=== PATIENT | female | born 1975 | race Caucasian/White ===

== ENCOUNTER 2018-02-27 16:18 | Emergency (ER) | payer MEDICAID ==
[~2018-02-27] VITALS: Ht 170.2 cm; Wt 81.6 kg
[2018-02-27 16:39] VITALS: BP 128/74
[2018-02-27] MEDS ORDERED: ULTRAM50 MG ORAL (16:49)
--- NOTE | 2018-02-27 16:50 | Emergency Room Report ---
History of Present Illness General Chief Complaint: Toothache Source: Patient Present Illness HPI 42-year-old female patient presents to ER complaining of toothache for the past 3 days. Patient reports that she was seen by her dentist earlier today and states she was discharged home after that with out any medication. Reports that she called her dentist later still complaining of pain and he called in a prescription for antibiotics. Patient reports she has not filled the prescription for antibiotics. Patient reports that she has been taking Advil, Tylenol, Excedrin for pain symptoms. Reports pain only resolves when she holds cold water in her mouth. states she was told by her dentist at the pain could be a result of her grinding her teeth. Denies fever, chest pain, shortness breath, vomiting. reports pain radiating to face. reports she had surgery to replace her teeth with veneers 2 months ago. Allergies: Coded Allergies: No Known Allergies (Unverified , 02/27/18) Patient History Past Medical History: see triage record Last Menstrual Period: 02/25/18 Reviewed Nursing Documentation: PMH: Agreed; PSxH: Agreed Nursing Documentation-PMH Past Medical History: No Stated History Review of Systems All Other Systems: negative except mentioned in HPI Physical Exam Vital Signs Date Time Temp Pulse Resp B/P (MAP) Pulse Ox O2 Delivery O2 Flow Rate FiO2 02/27/18 16:21 97.9 104 18 130/88 96 Room Air 97.9 Sp02 EP Interpretation: reviewed, normal General Appearance: well appearing, no apparent distress, alert, GCS 15, non- toxic Head: normocephalic, atraumatic Eyes: bilateral eye normal inspection, bilateral eye PERRL ENT: hearing grossly normal, normal pharynx, no angioedema, normal voice, TMs + canals normal, uvula midline, moist mucus membranes, other - no gum swelling, no erythema or edema, no abscess, no fluctuance or induration, no TTP of teeth Neck: full range of motion Respiratory: lungs clear, normal breath sounds, no rhonchi, no respiratory distress, no accessory muscle use, no wheezing, speaking full sentences Cardiovascular #1: regular rate, rhythm, no edema Genitourinary: no CVA tenderness Musculoskeletal: back normal, digits/nails normal, gait/station normal, normal range of motion, non-tender Neurologic: alert, oriented x3, responsive, motor strength/tone normal, sensory intact Psychiatric: mood/affect normal Skin: no rash Lymphatic: no adenopathy Medical Decision Making PA Attestation Dr. Sweet is my supervising Physician whom patient management has been discussed with. Diagnostic Impression: Primary Impression: Toothache ER Course Pt. presents to the ED c/o dental pain. Ddx considered but are not limited to cellulitis, abscess, dental caries, gingivitis, otitis media, sinusitis, strep throat, trigeminal neuralgia, temporal arteritis. No TTP over moravian region, no pulsating arteries, no fever, pain resolved with cold water mouth wash, low suspicion for temporal arteritis. Does not require imaging or labs at this time. Vital signs: are WNL, pt. is afebrile ED INTERVENTIONS: Pain medication provided in the ER. Physical exam benign. Nontoxic appearing, speaking full sentences, no active draining, mild edema, no trismus or vision changes. No signs of abscess, no fluctuance, erythema or edema. follow-up with PCP and request referral to maxillofacial specialist. Followup with dentist. Begin taking abx prescription to cover for possible infection provided by dentist. discuss pain control at that time. F/u with PCP and dentist for further treatment. DISCHARGE: -Rx provided for Ultram, CURES reviewed At this time pt. is stable for d/c to home. Patient is resting comfortably, in no acute distress, nontoxic appearing, talking and smiling without difficulty. Will provide printed patient care instructions and any necessary prescriptions. Care plan and follow up instructions have been discussed with the patient prior to discharge. Patient instructed to follow-up with primary care provider in 2 - 3 days. Followup with dentist. Patient questions asked and answered. Patient reports understanding and agreement to treatment plan. ER precautions given. Patient instructed to return to ER immediately for any new or worsening of symptoms including but not limited to fever, worsening of pain symptoms, worsening of erythema, red streaking. - Please note that this Emergency Department Report was dictated using [email or web address] operator technology software, occasionally this can lead to erroneous entry secondary to interpretation by the dictation equipment. Last Vital Signs Date Time Temp Pulse Resp B/P (MAP) Pulse Ox O2 Delivery O2 Flow Rate FiO2 02/27/18 16:39 98.0 76 20 128/74 97 Room Air 98.0 Disposition: HOME, SELF-CARE Condition: Stable Scripts Tramadol Hcl (ULTRAM*) 50 Mg Tablet 50 MG ORAL Q6H, #10 TAB 0 Refills Prov: Wilber Osuna 02/27/18 Patient Instructions: Dental Pain Additional Instructions: Followup with primary care provider in 1-2 days and request referral to maxillofacial specialist. Followup with dentist, take abx as instructed. Take medications as directed. Patient questions asked and answered. May cause drowsiness, do not take prior to drinking, driving, using heavy machinery. ER precautions given, patient instructed to return to ER immediately for any new or worsening of symptoms. Wilber Osuna Feb 27, 2018 16:50
[2018-02-27] MEDS ORDERED: Ketorolac 30mg Inj ONE (16:52)
[2018-02-27] MEDS ORDERED: Ketorolac 30mg Inj IM ONE (17:00)
[2018-02-27 17:15] VITALS: BP 132/68
== END 2018-02-27 17:15 | disposition home or self-care (01) ==
LOC: EDBD 16:35 → EMR 16:35
DX: K08.89 Other specified disorders of teeth and supporting structures (principal)
CPT/HCPCS: 96372; 99283; J1885

== ENCOUNTER 2019-02-23 15:22 | Emergency (ER) | payer MEDICAID ==
[~2019-02-23] VITALS: Ht 167.6 cm; Wt 72.6 kg
[~2019-02-23 15:22] MED LIST: ULTRAM50 MG ORAL
[2019-02-23] MEDS ORDERED: NKM (15:39)
--- NOTE | 2019-02-23 15:41 | NUR ---
ED Nurse Note: Patient presents to ER due to fall injury yesterday @ 1700 in [employer]. Patient was walking in the store, slipped and fell backward. Patient states 'there was detergent on the floor'. Reports no head injury. Swelling and bruise over the left elbow area noted. Patient reports decreased swelling after use of ice pack. Patient c/o LUE, right shoulder pain and hip pain. Patient awake, alert, oriented x 4. Regular, unlabored breathing noted. Ambulating to the room with steady gait.
[2019-02-23 16:14] VITALS: BP 119/84
[2019-02-23] MEDS ORDERED: traMADol 50mg tab ORAL ONE (16:15)
--- NOTE | 2019-02-23 17:43 | Emergency Room Report ---
History of Present Illness General Chief Complaint: Multiple Trauma/Fall Source: Patient (Alanna Olea) Present Illness HPI 43-year-old female presents to the emergency department complaining of 8 out of 10 severity pain to the right elbow, right shoulder, right hip and left medial elbow. She reports bruise to the left medial elbow as well as the right lateral aspect of the right garcia. Patient reports mechanical slip and fall at a store yesterday. Patient denies hitting her head or having loss of consciousness. She reports dull tight STOKES . Patient does report some generalized pain and stiffness in the musculature of the back. She denies midline neck, back or sacral pain. Patient states that she was carrying things and was unable to break her fall with her hands. Patient denies dizziness, nausea, vomiting. Patient denies taking blood thinning medications. Denies numbness tingling or loss of sensation or gross motor movements of the extremities, incontinence of bowel or bladder. Denies CP, Palpitations, AMS, Changes in Vision, weakness or a sudden severe headache. (Alanna Olea) Allergies: Coded Allergies: No Known Allergies (Unverified , 02/27/18) Patient History Past Medical History: see triage record Past Surgical History: none Pertinent Family History: none Last Menstrual Period: 2 weeks ago Now: No Immunizations: UTD Reviewed Nursing Documentation: PMH: Agreed; PSxH: Agreed (Alanna Olea) Nursing Documentation-PMH Past Medical History: No Stated History (Alanna Olea) Review of Systems All Other Systems: negative except mentioned in HPI (Alanna Olea) Physical Exam Vital Signs Date Time Temp Pulse Resp B/P (MAP) Pulse Ox O2 Delivery O2 Flow Rate FiO2 02/23/19 15:30 98.2 100 18 119/84 (96) 96 Room Air Sp02 EP Interpretation: reviewed, normal General Appearance: no apparent distress, alert, GCS 15, non-toxic Head: normocephalic, atraumatic Eyes: bilateral eye normal inspection, bilateral eye PERRL ENT: hearing grossly normal, normal voice Neck: full range of motion, no bony tend Respiratory: lungs clear, normal breath sounds, speaking full sentences Cardiovascular #1: regular rate, rhythm, normal capillary refill Gastrointestinal: non tender, soft Musculoskeletal: back normal, gait/station normal - ambulatory without assistance, normal range of motion, tender - TTP lateral right hip, TTP lateral right elbow, TTP lateral and posterior right shoulder, TTP , medial Left elbow. FROM of all joints, no obivous deformities, no clicking or increased laxity. Bruise noted to medial left elbow and lateral right garcia. no open wounds or bleeding. TTP to the paraspinal musculature of the upper backl and right side of the neck , no midline spinous process tenderness, no step off of the C-Spine , T-Spine or L-Spine, no Sacral TTP. Neurologic: alert, oriented x3, responsive, motor strength/tone normal, sensory intact, speech normal, grossly normal Psychiatric: judgement/insight normal Skin: Ecchymosis/Bruising - Bruise noted to medial left elbow and lateral right garcia. no open wounds or bleeding. (Alanna Olea) Medical Decision Making PA Attestation Dr. Falk Is my supervising Physician whom patient management has been discussed with. (Alanna Olea) Diagnostic Impression: Primary Impression: Contusion, multiple sites Additional Impressions: Muscle strain Generalized body aches Head ache Qualified Codes: R51 - Headache ER Course 43-year-old female presents to the emergency department complaining of 8 out of 10 severity pain to the right elbow, right shoulder, right hip and left medial elbow. She reports bruise to the left medial elbow as well as the right lateral aspect of the right garcia. Patient reports mechanical slip and fall at a store yesterday. Patient denies hitting her head or having loss of consciousness. She reports dull tight STOKES . Patient does report some generalized pain and stiffness in the musculature of the back. She denies midline neck, back or sacral pain. Patient states that she was carrying things and was unable to break her fall with her hands. Patient denies dizziness, nausea, vomiting. Patient denies taking blood thinning medications. Denies numbness tingling or loss of sensation or gross motor movements of the extremities, incontinence of bowel or bladder. Denies CP, Palpitations, AMS, Changes in Vision, weakness or a sudden severe headache. Ddx considered but are not limited to Fracture, dislocation, contusion, Sprain/ Strain/Spasm. Vital signs: are WNL, pt. is afebrile H&PE are most consistent with musculoskeletal injury will perform imaging to r/ o fractures/dislocations. ORDERS: - Urine Hcg: Negative - X-ray's: Right elbow 3 views, Left elbow 3 views, Right shoulder 3 views, and Right hip 3 views - negative for fx, Dislocation, or significant soft tissue injury, per preliminary read in ED, and signed by GIO Olea, my supervising physician has reviewed, and agrees with my interpretation. ED INTERVENTIONS: --Tramadol PO -- Right arm Sling applied by sound engineering technician. Pt. remains neurovascularly intact. DISCHARGE: At this time pt. is stable for d/c to home. Will provide printed patient care instructions, and any necessary prescriptions. Care plan and follow up instructions have been discussed with the patient prior to discharge. (Alanna Olea) Other X-Ray Diagnostic Results Other X-Ray Diagnostic Results #1: X-Ray ordered: Left Elbow # of Views/Limited Vs Complete: 3 View Indication: Pain EP Interpretation: Yes PA Xray: Interpretation reviewed, by supervising MD Interpretation: no dislocation, no soft tissue swelling, no fractures Impression: No acute disease Electronically Signed by: Alanna Olea PA-C Other X-Ray Diagnostic Results #2: X-Ray ordered: Right elbow # of Views/Limited Vs Complete: 3 View Indication: Pain EP Interpretation: Yes PA Xray: Interpretation reviewed, by supervising MD, and agrees with findings. Interpretation: no dislocation, no soft tissue swelling, no fractures Impression: No acute disease Electronically Signed by: Alanna Olea PA-C Other X-Ray Diagnostic Results #3: X-Ray ordered: Right HIP # of Views/Limited Vs Complete: 3 View Indication: Pain EP Interpretation: Yes PA Xray: Interpretation reviewed, by supervising MD, and agrees with findings. Interpretation: no dislocation, no soft tissue swelling, no fractures Impression: No acute disease Electronically Signed by: Alanna Olea PA-C Other X-Ray Diagnostic Results #4: X-Ray ordered: RIght SHoulder # of Views/Limited Vs Complete: 3 View Indication: Pain EP Interpretation: Yes PA Xray: Interpretation reviewed, by supervising MD, and agrees with findings. Interpretation: no dislocation, no soft tissue swelling, no fractures Impression: No acute disease Electronically Signed by: Alanna Olea PA-C (Alanna Olea) Other X-Ray Diagnostic Results #1: Electronically Signed by: Anjelica Lofton documentation of Xray reviewed by me and is accurate, Ion Falk MD Other X-Ray Diagnostic Results #2: Electronically Signed by: P A documentation of Xray reviewed by me and is accurate, Ion Falk MD Other X-Ray Diagnostic Results #3: Electronically Signed by: P A documentation of Xray reviewed by me and is accurate, Ion Falk MD Other X-Ray Diagnostic Results #4: Electronically Signed by: P A documentation of Xray reviewed by me and is accurate, Ion Falk MD (Ion Falk MD) Last Vital Signs Date Time Temp Pulse Resp B/P (MAP) Pulse Ox O2 Delivery O2 Flow Rate FiO2 02/23/19 17:27 98.2 02/23/19 16:14 100 18 Room Air 02/23/19 16:14 119/84 96 Status: improved (Alanna Olea) Disposition: HOME, SELF-CARE Condition: Stable Scripts Ibuprofen* (MOTRIN*) 600 Mg Tablet 600 MG ORAL THREE TIMES A DAY, #30 TAB 0 Refills Prov: Alanna Olea 02/23/19 Methocarbamol* (ROBAXIN-750*) 750 Mg Tablet 750 MG PO QID, #28 TAB 0 Refills Prov: Alanna Olea 02/23/19 Departure Forms: Return to Work Return to Work Date: Feb 26, 2019 Work Restrictions: No Heavy Lifting Other Restrictions: May return Sooner if Symptoms have resolved. Return to Full Activity: Mar 01, 2019 Patient Instructions: Contusion, [id number], Muscle Strain, [id number] Additional Instructions: Take medications as directed. Follow up with a Primary Care Provider in 3-5 days, even if your symptoms have resolved. --Please review list of primary care clinics, if you do not already have a primary care provider Return sooner to ED if new symptoms occur, or current symptoms become worse. Do not drink alcohol, drive, or operate heavy machinery while taking Robaxin ( Muscle Relaxers) as this may cause drowsiness. - Please note that this Emergency Department Report was dictated using [email or web address] or beauty salon manager technology software, occasionally this can lead to erroneous entry secondary to interpretation by the dictation equipment. Alanna Olea Feb 23, 2019 17:43 Ion Falk MD Feb 24, 2019 02:37
[2019-02-23] MEDS ORDERED: IBUPROFEN600 MG ORAL (17:44)
[2019-02-23] MEDS ORDERED: ROBAXIN-750750 MG PO (17:44)
[2019-02-23 17:46] VITALS: BP 119/84
--- NOTE | 2019-02-23 17:48 | NUR ---
ER DISCHARGE NOTE:arm sling placed on right arm Patient is cleared to be discharged per ERMD, pt is aox4, on room air, with stable vital signs. pt was given dc and prescription instructions, pt was able to verbalize understanding, pt is able to ambulate with steady gait. pt took all belongings.
--- NOTE | 2019-02-24 13:02 | Diagnostic Imaging Report ---
Indication: Right shoulder pain Technique: 3 views of the right shoulder Comparison: none Findings: No acute fractures. No dislocations. The joint spaces are preserved Impression: Negative
--- NOTE | 2019-02-24 13:02 | Diagnostic Imaging Report ---
Indication: Pain, status post fall Technique: 2 views of the right hip, one view the pelvis Comparison: none Findings: No acute fractures. No dislocations. The joint spaces are preserved Impression: Negative
--- NOTE | 2019-02-24 13:03 | Diagnostic Imaging Report ---
Indications:Pains, status post fall Technique: Three or 4 views of the left elbow Comparison: None Findings: No acute fractures. No dislocations. The joint spaces are preserved Impression: Negative
--- NOTE | 2019-02-24 13:04 | Diagnostic Imaging Report ---
Indications:Pain, status post fall Technique: Three or 4 views of the right elbow Comparison: None Findings: No evidence of joint effusion. No acute fractures. No dislocations. The joint spaces are preserved Impression: Negative
== END 2019-02-23 18:00 | disposition home or self-care (01) ==
LOC: EMR 15:59
DX: S46.911A Strain of unspecified muscle, fascia and tendon at shoulder and upper arm level, right arm, initial encounter (principal); R51 Headache; M79.10 Myalgia, unspecified site; S50.02XA Contusion of left elbow, initial encounter; S80.11XA Contusion of right lower leg, initial encounter; M25.551 Pain in right hip; M25.521 Pain in right elbow; M25.511 Pain in right shoulder; W01.0XXA Fall on same level from slipping, tripping and stumbling without subsequent striking against object, initial encounter; Y92.512 Supermarket, store or market as the place of occurrence of the external cause
CPT/HCPCS: 73030; 73080; 73510; 81025; Z7502; 99284